=== PATIENT | female | born 1970 | race Caucasian/White ===

== ENCOUNTER → 2022-03-07 | Outpatient (CLI) | payer OTHER ==
[~2022-03-07] MED LIST: CHLO25 PO; DOXY100 PO; EMTRICITABINE-1 EAC1 PO; METR500 PO; ONDA4ODT MM; RALT400 PO; SULTRIDS PO
[2022-03-07 17:31] LABS: Source, Urine Voided
[2022-03-07 18:19] LABS: Appearance, Urine Clear (Clear); Bilirubin, Urine Neg (Neg); Blood, Urine Neg (Neg); Glucose Qualitative, Urine Neg (Neg); Ketones, Urine Neg (Neg); Leukocyte Esterase, Urine 2+ (Neg); Nitrite, Urine Neg (Neg); Protein, Urine Neg (Neg); Urobilinogen, Urine NORM (Normal)
[2022-03-07 18:29] LABS: Color, Urine Pale Yellow (P-Yellow)
[2022-03-07 18:31] LABS: Bacteria Mod /hpf; Red Blood Cells, Urine 0-2 /hpf (0-2); Squamous Epithelial Cells Rare /hpf (Few)
== END ==
LOC: LAB 13:36 → LAB SHORT 13:36
PROVIDERS: Registered Nurse
DX: R30.0 Dysuria (principal)
CPT/HCPCS: 81001; 87086

== ENCOUNTER 2022-04-30 16:52 | Emergency (ER) | payer OTHER ==
[~2022-04-30] VITALS: Ht 162.6 cm; Wt 56.7 kg
== END 2022-04-30 20:21 | disposition home or self-care (01) ==
LOC: ER 16:52 → EOR 16:53
DX: F10.129 Alcohol abuse with intoxication, unspecified (principal)
CPT/HCPCS: 99284

== ENCOUNTER 2022-05-08 12:57 | Emergency (ER) | payer OTHER ==
[~2022-05-08] VITALS: Ht 157.5 cm; Wt 54.4 kg
[2022-05-08 13:32] LABS: BASOPHILS ABSOLUTE AUTO 0.03 K/mm3 (0.00-0.23); BASOPHILS PERCENT AUTO 1 % (0-2); EOSINOPHILS ABSOLUTE AUTO 0.02 K/mm3 (0.00-0.68); EOSINOPHILS PERCENT AUTO 0 % (0-6); Hematocrit 34.5 % (33.0-51.0); Hemoglobin 11.7 g/dL (11.5-16.0); IMMATURE GRAN ABSOLUTE AUTO 0.02 K/mm3 (0.00-0.10); IMMATURE GRAN PERCENT AUTO 0 % (0-1); LYMPHOCYTES ABSOLUTE AUTO 2.35 K/mm3 (0.84-5.20); LYMPHOCYTES PERCENT AUTO 36 % (21-46); MONOCYTES ABSOLUTE AUTO 0.32 K/mm3 (0.16-1.47); MONOCYTES PERCENT AUTO 5 % (4-13); Mean Corpuscular HGB 30.4 pg (26.0-34.0); Mean Corpuscular HGB Conc 33.9 g/dL (31.5-36.5); Mean Corpuscular Volume 90 fL (80-100); Mean Platelet Volume 9.5 fL (9.1-12.4); NEUTROPHILS ABSOLUTE AUTO 3.76 K/mm3 (1.96-9.15); NEUTROPHILS PERCENT AUTO 58 % (41-73); Platelet Count 226 K/mm3 (150-400); RDW Coefficient Variation 13.6 % (11.7-14.2); Red Blood Cell Count 3.85 M/mm3 (3.80-5.20)
[2022-05-08 13:45] LABS: Albumin, Blood 3.4 g/dL (3.4-5.0); Albumin/Globulin Ratio 1.1 (0.8-1.8); Bilirubin, Total 0.3 mg/dL (0.1-1.0); Bun/Creatinine Ratio 14.6 (12.0-20.0); Calcium, Blood 8.3 mg/dL (8.5-10.1); Creatinine, Blood 0.69 mg/dL (0.40-1.00); Globulin, Blood 3.2 g/dL (2.2-4.0); Potassium, Blood 3.2 mmol/L (3.5-5.5); Total Protein, Blood 6.6 g/dL (6.4-8.2)
[2022-05-08 16:01] LABS: U Cannabinoids Screen DETECTED
[2022-05-08 16:02] LABS: U Amphetamine Screen Not Detected; U Barbituate Screen Not Detected; U Benzodiazapine Screen Not Detected; U Buprenorphine Screen Not Detected; U Cocaine Screen Not Detected; U Methadone Screen Not Detected; U Methamphetamine Screen Not Detected; U Opiates Screen Not Detected; U Oxycodone Screen Not Detected; U Phencyclidine Screen Not Detected; U Propoxyphene Screen Not Detected
== END 2022-05-08 16:22 | disposition home or self-care (01) ==
LOC: ER 12:57
PROVIDERS: Emergency Medicine; Physician Assistant
DX: F10.229 Alcohol dependence with intoxication, unspecified (principal); R07.9 Chest pain, unspecified; F17.200 Nicotine dependence, unspecified, uncomplicated
CPT/HCPCS: 71046; 80053; 83690; 83880; 84484; 85025; 93005; 93010; 99285-25; G0480

== ENCOUNTER 2022-05-11 11:01 | Emergency (ER) | payer OTHER ==
[~2022-05-11] VITALS: Ht 165.1 cm; Wt 61.2 kg
[2022-05-11 11:25] LABS: BASOPHILS ABSOLUTE AUTO 0.03 K/mm3 (0.00-0.23); BASOPHILS PERCENT AUTO 1 % (0-2); EOSINOPHILS ABSOLUTE AUTO 0.04 K/mm3 (0.00-0.68); EOSINOPHILS PERCENT AUTO 1 % (0-6); Hematocrit 34.8 % (33.0-51.0); Hemoglobin 11.5 g/dL (11.5-16.0); IMMATURE GRAN ABSOLUTE AUTO 0.02 K/mm3 (0.00-0.10); IMMATURE GRAN PERCENT AUTO 1 % (0-1); LYMPHOCYTES ABSOLUTE AUTO 1.16 K/mm3 (0.84-5.20); LYMPHOCYTES PERCENT AUTO 27 % (21-46); MONOCYTES ABSOLUTE AUTO 0.41 K/mm3 (0.16-1.47); MONOCYTES PERCENT AUTO 9 % (4-13); Mean Corpuscular HGB 30.6 pg (26.0-34.0); Mean Corpuscular Volume 93 fL (80-100); Mean Platelet Volume 9.1 fL (9.1-12.4); NEUTROPHILS ABSOLUTE AUTO 2.72 K/mm3 (1.96-9.15); NEUTROPHILS PERCENT AUTO 62 % (41-73); Platelet Count 216 K/mm3 (150-400); RDW Coefficient Variation 14.8 % (11.7-14.2); RDW Standard Deviation 49.5 fL (35.1-46.3); Red Blood Cell Count 3.76 M/mm3 (3.80-5.20); White Blood Cell Count 4.38 K/mm3 (4.00-11.30)
[2022-05-11] MEDS ORDERED: GABA100 PO (11:34)
[2022-05-11] MEDS ORDERED: Seroquel Xr50 MG PO (11:35)
[2022-05-11 11:38] LABS: Albumin, Blood 3.4 g/dL (3.4-5.0); Albumin/Globulin Ratio 1.1 (0.8-1.8); Bilirubin, Total 0.2 mg/dL (0.1-1.0); Bun/Creatinine Ratio 18.2 (12.0-20.0); Calcium, Blood 7.6 mg/dL (8.5-10.1); Creatinine, Blood 0.6 mg/dL (0.40-1.00); Globulin, Blood 3.2 g/dL (2.2-4.0); Potassium, Blood 3.7 mmol/L (3.5-5.5); Total Protein, Blood 6.6 g/dL (6.4-8.2)
[2022-05-11 12:28] LABS: Influenza A, PCR NEGATIVE (NEGATIVE); Influenza B, PCR NEGATIVE (NEGATIVE); Resp Syncytial Virus, PCR NEGATIVE (NEGATIVE); SARS-Cov-2 (COVID-19) PCR, MMC NEGATIVE (NEGATIVE)
[2022-05-11] MEDS ORDERED: ONDA4ODT MM (14:34)
== END 2022-05-11 15:05 | disposition home or self-care (01) ==
LOC: ER 11:01
PROVIDERS: Student in an Organized Health Care Education/Training Program
DX: R55 Syncope and collapse (principal); E86.0 Dehydration; F10.20 Alcohol dependence, uncomplicated; E83.51 Hypocalcemia; F17.200 Nicotine dependence, unspecified, uncomplicated; Z20.822 Contact with and (suspected) exposure to COVID-19
CPT/HCPCS: 0241U; 80053; 83735; 85025; 93005; 93010; A9270; G0480; J0610; J2765; J7030

== ENCOUNTER 2022-09-06 16:11 | Emergency (ER) | payer OTHER ==
[~2022-09-06] VITALS: Ht 162.6 cm; Wt 68.0 kg
[~2022-09-06 16:11] MED LIST changes: +GABA100 PO; +Seroquel Xr50 MG PO
[2022-09-06 16:57] VITALS: BP 101/84
== END 2022-09-06 19:00 | disposition home or self-care (01) ==
LOC: ER 16:11
DX: F41.9 Anxiety disorder, unspecified (principal); R45.1 Restlessness and agitation; Z79.899 Other long term (current) drug therapy; F17.200 Nicotine dependence, unspecified, uncomplicated
CPT/HCPCS: 99282

== ENCOUNTER 2022-12-13 18:31 | Observation (INO) | payer OTHER ==
[~2022-12-13 18:31] MED LIST changes: +ELIQUIS5 M2 PO
[2022-12-13 20:51] LABS: BASOPHILS ABSOLUTE AUTO 0.09 K/mm3 (0.00-0.23); BASOPHILS PERCENT AUTO 1 % (0-2); EOSINOPHILS ABSOLUTE AUTO 0.14 K/mm3 (0.00-0.68); EOSINOPHILS PERCENT AUTO 2 % (0-6); Hematocrit 37.3 % (33.0-51.0); Hemoglobin 12.8 g/dL (11.5-16.0); IMMATURE GRAN ABSOLUTE AUTO 0.02 K/mm3 (0.00-0.10); IMMATURE GRAN PERCENT AUTO 0 % (0-1); LYMPHOCYTES PERCENT AUTO 56 % (21-46); MONOCYTES ABSOLUTE AUTO 0.67 K/mm3 (0.16-1.47); MONOCYTES PERCENT AUTO 11 % (4-13); Mean Corpuscular HGB 29.3 pg (26.0-34.0); Mean Corpuscular HGB Conc 34.3 g/dL (31.5-36.5); Mean Corpuscular Volume 85 fL (80-100); Mean Platelet Volume 8.3 fL (9.1-12.4); NEUTROPHILS ABSOLUTE AUTO 1.83 K/mm3 (1.96-9.15); NEUTROPHILS PERCENT AUTO 29 % (41-73); Platelet Count 320 K/mm3 (150-400); RDW Coefficient Variation 13.7 % (11.7-14.2); RDW Standard Deviation 42.4 fL (35.1-46.3); Red Blood Cell Count 4.37 M/mm3 (3.80-5.20); White Blood Cell Count 6.25 K/mm3 (4.00-11.30)
[2022-12-13 21:19] LABS: Alanine Aminotransfer (ALT/SGP 23 U/L (12-78); Albumin, Blood 3.8 g/dL (3.4-5.0); Albumin/Globulin Ratio 1.1 (0.8-1.8); Alk Phos 94 U/L (50-136); Anion Gap 10 mmol/L (6-16); Aspartate Aminotrans (AST/SGOT 22 U/L (12-37); Bilirubin, Total 0.1 mg/dL (0.1-1.0); Blood Urea Nitrogen 6 mg/dL (8-24); Bun/Creatinine Ratio 8.7 (12.0-20.0); CO2, Blood 25 mmol/L (21-32); Calcium, Blood 8.5 mg/dL (8.5-10.1); Chloride, Blood 111 mmol/L (98-108); Creatinine, Blood 0.69 mg/dL (0.40-1.00); Globulin, Blood 3.6 g/dL (2.2-4.0); Glomerular Filtration Rate 104 (60-); Glucose, Blood 100 mg/dL (70-99); Potassium, Blood 3.6 mmol/L (3.5-5.5); Sodium, Blood 146 mmol/L (136-145); Total Protein, Blood 7.4 g/dL (6.4-8.2)
[2022-12-13 21:20] LABS: Acetaminophen, Random <2.0 ug/mL (10.0-30.0)
[2022-12-13 21:30] LABS: Ethanol (Alcohol), Blood, Med 360 mg/dL
[2022-12-13 21:36] LABS: Source, Urine Voided
[2022-12-13 21:40] LABS: Appearance, Urine Clear (Clear); Bilirubin, Urine Neg (Neg); Blood, Urine Neg (Neg); Glucose Qualitative, Urine Neg (Neg); Ketones, Urine Neg (Neg); Leukocyte Esterase, Urine Neg (Neg); Nitrite, Urine Neg (Neg); Protein, Urine Neg (Neg); Urobilinogen, Urine NORM (Normal)
[2022-12-13 21:44] LABS: Color, Urine Pale Yellow (P-Yellow)
[2022-12-13 22:47] LABS: U Amphetamine Screen DETECTED; U Barbituate Screen Not Detected; U Benzodiazapine Screen DETECTED; U Buprenorphine Screen Not Detected; U Cannabinoids Screen Not Detected; U Cocaine Screen Not Detected; U Methadone Screen Not Detected; U Methamphetamine Screen DETECTED; U Opiates Screen Not Detected; U Oxycodone Screen Not Detected; U Phencyclidine Screen Not Detected; U Propoxyphene Screen Not Detected
[2022-12-14 10:19] VITALS: BP 132/76
[2022-12-14] MEDS ORDERED: HYDPAM25 PO (12:11)
[2022-12-14] MEDS ORDERED: GABA400 PO (12:11)
[2022-12-14] MEDS ORDERED: ELIQUIS5 M3 (19:54)
[2022-12-14] MEDS ORDERED: NICORETTE4 M1 BC (19:54)
[2022-12-14] MEDS ORDERED: LAMOTRIGINE25 M4 PO (19:55)
== END 2022-12-15 22:34 | disposition home or self-care (01) ==
LOC: ER 18:31 → EOR 18:32
PROVIDERS: ADMIT Emergency Medicine
DX: F33.9 Major depressive disorder, recurrent, unspecified (principal); F15.10 Other stimulant abuse, uncomplicated; F10.139 Alcohol abuse with withdrawal, unspecified; F17.210 Nicotine dependence, cigarettes, uncomplicated; Z79.899 Other long term (current) drug therapy
CPT/HCPCS: 80053; 81003; 81025; 85025; 86592; 93005; 93010; 96372; 99285-25; A9270; G0378; G0480; J0696; J2560; J3411; Q3014

== ENCOUNTER 2023-03-28 23:37 | Observation (INO) | payer OTHER ==
[~2023-03-28] VITALS: Ht 167.6 cm; Wt 72.8 kg
[~2023-03-28 23:37] MED LIST changes: +CITALOPRAM HBR30 M1 PO; +ELIQUIS5 M3; +GABA300 PO; +GABA400 PO; +HYDPAM25 PO; +LAMO100 PO; +LAMOTRIGINE25 M4 PO; +NICO21TP TOP; +NICORETTE4 M1 BC; +QUET300 PO
[2023-03-29] VITALS (19 sets, daily range): BP systolic 95–133; BP diastolic 73–93
[2023-03-29 00:47] LABS: Base Excess Venous -1.9 mmol/L; Bicarbonate Venous 22.7 mmol/L (24.0-30.0); PCO2 Venous 42.4 mmHg (38-42); pH Blood Venous 7.35 (7.34-7.37)
[2023-03-29 00:47] LABS: BASOPHILS ABSOLUTE AUTO 0.15 K/mm3 (0.00-0.23); BASOPHILS PERCENT AUTO 2 % (0-2); EOSINOPHILS ABSOLUTE AUTO 0.38 K/mm3 (0.00-0.68); EOSINOPHILS PERCENT AUTO 4 % (0-6); Hematocrit 43.2 % (33.0-51.0); Hemoglobin 14.3 g/dL (11.5-16.0); IMMATURE GRAN ABSOLUTE AUTO 0.02 K/mm3 (0.00-0.10); IMMATURE GRAN PERCENT AUTO 0 % (0-1); LYMPHOCYTES ABSOLUTE AUTO 3.71 K/mm3 (0.84-5.20); LYMPHOCYTES PERCENT AUTO 40 % (21-46); MONOCYTES ABSOLUTE AUTO 1.13 K/mm3 (0.16-1.47); MONOCYTES PERCENT AUTO 12 % (4-13); Mean Corpuscular HGB 31.8 pg (26.0-34.0); Mean Corpuscular HGB Conc 33.1 g/dL (31.5-36.5); Mean Corpuscular Volume 96 fL (80-100); Mean Platelet Volume 9.6 fL (9.1-12.4); NEUTROPHILS ABSOLUTE AUTO 3.94 K/mm3 (1.96-9.15); NEUTROPHILS PERCENT AUTO 42 % (41-73); Platelet Count 314 K/mm3 (150-400); RDW Coefficient Variation 14.7 % (11.7-14.2); RDW Standard Deviation 52.4 fL (35.1-46.3); Red Blood Cell Count 4.49 M/mm3 (3.80-5.20); White Blood Cell Count 9.33 K/mm3 (4.00-11.30)
[2023-03-29 01:15] LABS: Ethanol (Alcohol), Blood, Med 146 mg/dL; Magnesium, Blood 2.2 mg/dL (1.6-2.4); Salicylate <1.7 mg/dL (2.8-20.0)
[2023-03-29 01:16] LABS: Alanine Aminotransfer (ALT/SGP 234 U/L (12-78); Alk Phos 127 U/L (50-136); Anion Gap 9 mmol/L (6-16); Aspartate Aminotrans (AST/SGOT 213 U/L (12-37); Bilirubin, Total 0.5 mg/dL (0.1-1.0); Blood Urea Nitrogen 6 mg/dL (8-24); Bun/Creatinine Ratio 7.7 (12.0-20.0); CO2, Blood 26 mmol/L (21-32); Chloride, Blood 102 mmol/L (98-108); Creatinine, Blood 0.78 mg/dL (0.40-1.00); Glomerular Filtration Rate 91 (60-); Glucose, Blood 143 mg/dL (70-99); Phosphorus, Blood 4.5 mg/dL (2.5-4.9); Potassium, Blood 3.3 mmol/L (3.5-5.5); Sodium, Blood 137 mmol/L (136-145)
[2023-03-29 01:17] LABS: Acetaminophen, Random <2.0 ug/mL (10.0-30.0)
[2023-03-29 01:23] LABS: Influenza A, PCR NEGATIVE (NEGATIVE); Influenza B, PCR NEGATIVE (NEGATIVE); Resp Syncytial Virus, PCR NEGATIVE (NEGATIVE); SARS-Cov-2 (COVID-19) PCR, MMC NEGATIVE (NEGATIVE)
[2023-03-29 01:41] LABS: International Normalized Ratio 0.9; Prothrombin Time Results 9.5 Sec (9.7-11.5)
--- NOTE | 2023-03-29 06:30 | NUR ---
PT ADMITTED TO ROOM ICU 15 FROM ED. ARRIVING AT 0435. REPORT RECEIVED. PT AWAKENS AND IS EASILY TRANSFERS HERSELF FROM GURNEY TO BED. ABLE TO ANSWER MOST QUESTIONS. DOES HAVE SOME MEMORY DEFICITS. CHANGED PT TO PAPER SCRUBS. PT MAKES VERBAL CONTRACT TO NOT ATTEMPT TO HARM HERSELF WHILE HERE. 1:1 SITTER AT DOOR. WILL CONTINUE TO MONITOR PT, AND WILL REPORT OFF TO ONCOMING RN.
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
--- NOTE | 2023-03-29 16:46 | NUR ---
SUMMARY PT DROWSY BUT AROUSES FROM SLEEP EASILY TO VOICE. ABLE TO HOLD APPROPRIATE CONVERSATION. PLEASANT AND COOPERATIVE. PT STATES SHE DRINKS WHATEVER ALCOHOL SHE CAN GET ON A DAILY BASIS. SPOKE WITH DR. JONES ABOUT CIWA ORDERS, NEW ORDERS RECEIVED. DR. GARNER IN TO SEE PT THIS AFTERNOON. RECOMMENDING INPT PSYCH AND KEEP 1:1 SITTER. NEW MEDS ORDERED WELL. NO SIGN OF DISTRESS. PT WILL BE MOVING TO PCU 8.
--- NOTE | 2023-03-29 18:33 | NUR ---
TRANSFER TO PCU AND SHIFT SUMMARY: PATIENT ALERT AND ORIENTED X4. VERY PLEASENT AND COOPERATIVE WITH CARES. DENIES NUMBNESS/TINGLING. UP WITH SBA TO HELP MANAGE IV CORDS. ON ROOM AIR, LUNGS SOUNDING CLEAR. TELE SHOWING SR WITH HR 70-90'S. SBP 110'S. DENIES CHEST PAIN/PRESSURE/PALPITATIONS. PPP. DENIES ABDOMINAL PAIN/NAUSEA. BOWEL TONES PRESENT. UP TO BATHROOM/BSC TO VOID. HIGH SI PRECUATIONS. 1:1 SITTER IN ROOM. ROOM MITIGATED PRIOR TO PATIENT ARRIVAL. CIWA SCORING 5 UPON TRANSFER. EATING DINNER AT THIS TIME. COMPLAINS OF LEFT HAND PAIN. NO SWELLING OR REDNESS NOTED. SHORT CALL LIGHT IN REACH. DENIES NEEDS AT THIS TIME.
[2023-03-30 00:14] VITALS: BP 106/78
[2023-03-30 04:28] VITALS: BP 108/69
[2023-03-30 04:31] LABS: Source, Urine Clean Catch
[2023-03-30 04:35] LABS: Bilirubin, Urine Neg (Neg); Blood, Urine Neg (Neg); Glucose Qualitative, Urine Neg (Neg); Ketones, Urine Neg (Neg); Leukocyte Esterase, Urine Neg (Neg); Nitrite, Urine Neg (Neg); Protein, Urine Neg (Neg); Urobilinogen, Urine NORM (Normal)
[2023-03-30 04:49] LABS: Color, Urine Pale Yellow (P-Yellow)
[2023-03-30 04:50] LABS: Appearance, Urine Clear (Clear)
--- NOTE | 2023-03-30 04:53 | NUR ---
ASSUMED CARE OF PT AT 1900. PT HAS HAD NO COMPLAINTS T/O THE NIGHT. DENIES SUICIDAL IDEATION T/O THE SHIFT, DENIES OVERDOSING SUICIDE ATTEMPT. PT APPEARS TO SLEEP THROUGH MOST OF THE SHIFT, RESPIRATIONS EVEN AND UNLABORED. 1:1 SITTER IN LINE OF SIGHT OF PT T/O THE SHIFT. IV TO L HAND PULLED BY PT, APPEARS TO BE AN ACCIDENT. GAUZE APPLIED. 2ND IV TO LAC INTACT. NO ACUTE CHANGES T/O THE SHIFT. 1:[address] FOR PT SAFETY. WILL CONTINUE TO MONITOR AND GIVE REPORT TO NOC SHIFT RN.
[2023-03-30 04:58] LABS: U Amphetamine Screen DETECTED; U Barbituate Screen Not Detected; U Benzodiazapine Screen DETECTED; U Buprenorphine Screen Not Detected; U Cannabinoids Screen Not Detected; U Cocaine Screen Not Detected; U Methadone Screen Not Detected; U Methamphetamine Screen DETECTED; U Opiates Screen Not Detected; U Oxycodone Screen Not Detected; U Phencyclidine Screen Not Detected; U Propoxyphene Screen Not Detected
[2023-03-30 08:43] VITALS: BP 113/74
--- NOTE | 2023-03-30 09:37 | NUR ---
PATIENT WAS VERBALLY AGGRESSIVE WITH LAB STAFF THIS AM AND REFUSED LAB DRAW, PT WAS PLEASANT WHEN THIS RN ARRIVED TO THE ROOM, BUT AIMEE STATES THAT PT WAS VERBALLY AGGRESSIVE WITH LAB STAFF
--- NOTE | 2023-03-30 12:15 | NUR ---
PT COMPLAINING OF LT HAND PAIN, SLIGHT ERYTHEMA NOTED TO LT HAND, THERE IS A PUNCTURE SITE TO THIS HAND, THE HAND IS WARM TO THE TOUCH. TEMP IS 99.9. THE PUNCTURE SITE WAS CLEANED WITH WOUNDTGERITY AND REDRESSED. DR JONES IS CALLED AND UPDATED, NO FURHTER ORDERS AT THIS TIME
[2023-03-30 12:22] VITALS: BP 118/76
--- NOTE | 2023-03-30 12:23 | NUR ---
PER CHART REVIEW THERE WAS NOT AN IV PLACED TO LT HAND THAT ACCOUNT FOR PUNCTURE HOLE TO THAT HAND.
[2023-03-30 15:33] VITALS: BP 111/79
--- NOTE | 2023-03-30 17:35 | NUR ---
PT IS ALERT AND ORIENTED TO SELF AND SITUATION. PT DOES INTERMITTENTLY BECOME AGITATED WITH CERTAIN STAFF MEMBERS. HER HAND HAS LESS REDNESS TO IT AFTER BEING CLEANED AND REDRESSED, PT REPORTS THAT HAND NO LONGER HURTS. PT WAS UP TO SHOWER THIS AFTERNOON SHE BECAME VERY AGITATED WHILE IN THE SHOWER WAS SOBBING AND SITTING ON THE FLOOR OF THE SHOWER. SHE HAS BEEN APPROPRIATE WITH CARE FOR THIS RN, BUT SHE HAS REFUSED CARE WITH LAB AND POLE LIFT OPERATOR TODAY. DR JONES WAS HERE TO ASSESS HER HAND. I CALLED ALL FACILITIES IN THE STATE TODAY, NONE HAD BED AVAILABILITY, [facility] HAS FAXED PACKETS FOR THE PT TO NUMEROUS FACILITIES. SHE OTHERWISE HAS BEEN RESTING WELL IN BED WITH 1:1 SITTER. NADN. FLYNN
[2023-03-30 22:10] VITALS: BP 115/77
[2023-03-31 00:11] VITALS: BP 115/77
--- NOTE | 2023-03-31 00:23 | NUR ---
ASSUMED CARE OF PT AT 1900 THIS EVENING. PT IS CALM AND COOPERATIVE WITH STAFF, 1:[address] 1939: THIS RN CONTACTED BY [facility], THEY HAVE A BED AVAILABLE FOR PT. REPORT GIVEN TO RN. AWAITING DOC TO DOC AND ROOM ASSIGNMENT. STAFF INFORMED PT THAT SHE HAS BEEN ACCEPTED TO [facility]. PT STATES "I DON'T WAN TO GO, I WANT TO GO TO REHAB!" DR BRAGA NOTIFIED AND HE SPOKE WITH DR GARNER REGUARDING HIS RECOMENDATION FOR PT TO GO TO [facility]. DR GARNER CONFIRMED PT IS TO BE TRANSFERED, PER DR BRAGA. PROCESS STARTED FOR 2 MD HOLD PAPERWORK PER DR BRAGA AND DR BANG.
[2023-03-31 04:11] VITALS: BP 119/65
[2023-03-31 05:14] LABS: Albumin, Blood 3.1 g/dL (3.4-5.0); Albumin/Globulin Ratio 0.9 (0.8-1.8); Bilirubin, Total 0.2 mg/dL (0.1-1.0); Bun/Creatinine Ratio 9.4 (12.0-20.0); Calcium, Blood 8.5 mg/dL (8.5-10.1); Creatinine, Blood 0.74 mg/dL (0.40-1.00); Free Thyroxine 0.73 ng/dL (0.70-1.60); Globulin, Blood 3.4 g/dL (2.2-4.0); Potassium, Blood 3.9 mmol/L (3.5-5.5); Thyroid Stimulating Hormone 0.482 uIU/mL (0.360-4.800); Total Protein, Blood 6.5 g/dL (6.4-8.2)
--- NOTE | 2023-03-31 06:33 | NUR ---
PT IS NOW ON A 2 MD HOLD. TRANSPORT TO [facility] SCHEDULED FOR 1545 TODAY. PT IS AWARE OF HER PENDING TRANSFER AND 2 MD HOLD. NO EXPRESSION OF SUICIDAL IDEATION OVERNIGHT. PT SLEPT MOST OF THE NIGHT AND WAS COOPERATIVE WITH STAFF.1:[address] FOR SAFETY. VSS. SEE DOCUMENTED ASSESSMENT. NO ACUTE NEEDS IDENTIFIED AT THIS TIME. WILL CONITNUE TO MONITOR AND GIVE REPORT TO AM RN.
[2023-03-31 09:17] VITALS: BP 119/83
--- NOTE | 2023-03-31 09:31 | NUR ---
PT IS COOPERATIVE BUT AGITATED THIS MORNING. THIS RN TO ROOM FOR MORNING MEDCIATION PASS SHE IMMEDAIATELY BEGINS ASKING ABOUT TRANSPORT TIME, SHE IS REMINDED AGAIN THAT TRANSPORT IS DUE TO ARRIVE AROUND 1600 TODAY, SHE BEGINS WITH PRESSURED SPEECH AT AN ELEVATED TONE "I WAS TOLD IT WOULD BE LAST NIGHT, THEN I WAS TOLD 9 THIS MORNING AND NOW YOU'RE SAYING TONIGHT, I JUST WANT YOU TO KNOW YOU'RE FUCKED UP". PT IS REMINDED THAT THIS RN AND STAFF ARE NOT IN CONTROL OF [facility] AND THEIR TIMES THEY DO THEIR OWN SCHEDULING. SHE BEGINS TO CRITIZE THIS RN THIS TIME FOR TRANSPORT IS TOO LONG FOR HER TO WAIT. SHE IS AGAIN REMINDED THAT THIS RN NOR ANY MEMBER OF STAFF CONTROL [facility] AND THEIR SCHEDULING SHE AGAIN IS CRITICIZING THIS RN. PT IS POLITELY ENCOURAGED TO SHARE HER CONCERN AND REVIEW OF HER EXPERIENCE WITH WAIT TIME WITH [facility], SHE STS "FINE I AM JUST GOING TO BRING IT UP OR TALK ABOUT IT AGAIN". PT ACCEPTS MEDICATIONS, REFUSED HEPARIN, ALLOWED VITALS TO BE TAKEN
[2023-03-31 16:29] VITALS: BP 1/83
--- NOTE | 2023-03-31 17:27 | NUR ---
PT OTD WITH [facility], LENI AT [facility] IS UPDATED THAT PT WILL ARRIVE IN AROUND 3 HOURS. IV REMOVED PT CALM AND COOPERATIVE
== END 2023-03-31 17:26 ==
LOC: ER 23:37 → ICUE 23:38 → PCU 23:38 → ICUE 23:38 → PCU 03-29 17:56
PROVIDERS: Emergency Medicine; Internal Medicine; ADMIT Internal Medicine
DX: T43.591A Poisoning by other antipsychotics and neuroleptics, accidental (unintentional), initial encounter (principal); F15.10 Other stimulant abuse, uncomplicated; J96.01 Acute respiratory failure with hypoxia; E87.6 Hypokalemia; G92.8 Other toxic encephalopathy; F10.129 Alcohol abuse with intoxication, unspecified; E87.20 Acidosis, unspecified; R94.6 Abnormal results of thyroid function studies; F31.9 Bipolar disorder, unspecified; F17.210 Nicotine dependence, cigarettes, uncomplicated; Z79.899 Other long term (current) drug therapy; Z20.822 Contact with and (suspected) exposure to COVID-19
CPT/HCPCS: 0241U; 36415; 71045; 80053; 81003; 82803; 83605; 83735; 84100; 84439; 84443; 84484; 84703; 85025; 85610; 85730; 93005; 93010; 96365; 96366; 96372; 96375; 96376; 99285-25; A9270; G0378; G0480; J1644; J2060; J2310; J3475; J7030; J7120

== ENCOUNTER 2023-05-03 15:28 | Emergency (ER) | payer OTHER ==
[~2023-05-03] VITALS: Ht 157.5 cm; Wt 54.4 kg
[2023-05-03 15:34] VITALS: BP 118/68
[2023-05-10] MEDS ORDERED: FERSU300 PO (00:53)
== END 2023-05-04 15:22 | disposition home or self-care (01) ==
LOC: ER 15:28
DX: T69.022A Immersion foot, left foot, initial encounter (principal); T69.021A Immersion foot, right foot, initial encounter; F17.200 Nicotine dependence, unspecified, uncomplicated
CPT/HCPCS: 86592; 99283; A9270

== ENCOUNTER 2023-05-09 17:38 | Emergency (ER) | payer OTHER ==
[~2023-05-09] VITALS: Ht 157.5 cm; Wt 59.0 kg
[2023-05-09 18:31] LABS: BASOPHILS ABSOLUTE AUTO 0.03 K/mm3 (0.00-0.23); BASOPHILS PERCENT AUTO 1 % (0-2); EOSINOPHILS ABSOLUTE AUTO 0.07 K/mm3 (0.00-0.68); EOSINOPHILS PERCENT AUTO 1 % (0-6); Hematocrit 33.9 % (33.0-51.0); Hemoglobin 11.2 g/dL (11.5-16.0); IMMATURE GRAN ABSOLUTE AUTO 0.04 K/mm3 (0.00-0.10); IMMATURE GRAN PERCENT AUTO 1 % (0-1); LYMPHOCYTES ABSOLUTE AUTO 1.61 K/mm3 (0.84-5.20); LYMPHOCYTES PERCENT AUTO 24 % (21-46); MONOCYTES ABSOLUTE AUTO 0.46 K/mm3 (0.16-1.47); MONOCYTES PERCENT AUTO 7 % (4-13); Mean Corpuscular Volume 94 fL (80-100); Mean Platelet Volume 9.1 fL (9.1-12.4); NEUTROPHILS ABSOLUTE AUTO 4.39 K/mm3 (1.96-9.15); NEUTROPHILS PERCENT AUTO 66 % (41-73); Platelet Count 324 K/mm3 (150-400); RDW Coefficient Variation 14.1 % (11.7-14.2); RDW Standard Deviation 48.5 fL (35.1-46.3); Red Blood Cell Count 3.61 M/mm3 (3.80-5.20)
[2023-05-09 19:11] LABS: Albumin/Globulin Ratio 0.9 (0.8-1.8); Bilirubin, Total 0.1 mg/dL (0.1-1.0); Bun/Creatinine Ratio 12.2 (12.0-20.0); Calcium, Blood 8.4 mg/dL (8.5-10.1); Creatinine, Blood 0.74 mg/dL (0.40-1.00); Globulin, Blood 3.3 g/dL (2.2-4.0); Potassium, Blood 3.5 mmol/L (3.5-5.5); Total Protein, Blood 6.3 g/dL (6.4-8.2)
[2023-05-09 19:46] LABS: Magnesium, Blood 1.7 mg/dL (1.6-2.4)
[2023-05-09 20:11] LABS: Influenza A, PCR NEGATIVE (NEGATIVE); Influenza B, PCR NEGATIVE (NEGATIVE); Resp Syncytial Virus, PCR NEGATIVE (NEGATIVE); SARS-Cov-2 (COVID-19) PCR, MMC NEGATIVE (NEGATIVE)
[2023-05-09 21:31] LABS: Percent Saturation 10.6 % (15.0-50.0)
[2023-05-09 21:45] VITALS: BP 102/73
[2023-05-10] MEDS ORDERED: FERSU300 PO (00:53)
== END 2023-05-09 22:10 | disposition home or self-care (01) ==
LOC: ER 17:38
PROVIDERS: Emergency Medicine; Student in an Organized Health Care Education/Training Program
DX: I47.10 Supraventricular tachycardia, unspecified (principal); E86.0 Dehydration; J06.9 Acute upper respiratory infection, unspecified; D64.9 Anemia, unspecified; F10.129 Alcohol abuse with intoxication, unspecified; Z20.822 Contact with and (suspected) exposure to COVID-19; F17.200 Nicotine dependence, unspecified, uncomplicated; F31.9 Bipolar disorder, unspecified; Z79.899 Other long term (current) drug therapy; W18.30XA Fall on same level, unspecified, initial encounter
CPT/HCPCS: 0241U; 80053; 82607; 82728; 82746; 83540; 83550; 83735; 84484; 85025; 93005; 93010; 96360; 99284-25; J7030

== ENCOUNTER 2023-06-01 17:11 | Observation (INO) | payer OTHER ==
[~2023-06-01] VITALS: Ht 167.6 cm; Wt 63.5 kg
[~2023-06-01 17:11] MED LIST changes: +FERSU300 PO
[2023-06-01 19:34] LABS: BASOPHILS ABSOLUTE AUTO 0.06 K/mm3 (0.00-0.23); BASOPHILS PERCENT AUTO 1 % (0-2); EOSINOPHILS ABSOLUTE AUTO 0.09 K/mm3 (0.00-0.68); EOSINOPHILS PERCENT AUTO 1 % (0-6); Hematocrit 43.2 % (33.0-51.0); Hemoglobin 14.4 g/dL (11.5-16.0); IMMATURE GRAN ABSOLUTE AUTO 0.04 K/mm3 (0.00-0.10); IMMATURE GRAN PERCENT AUTO 1 % (0-1); LYMPHOCYTES ABSOLUTE AUTO 2.41 K/mm3 (0.84-5.20); LYMPHOCYTES PERCENT AUTO 35 % (21-46); MONOCYTES ABSOLUTE AUTO 0.49 K/mm3 (0.16-1.47); MONOCYTES PERCENT AUTO 7 % (4-13); Mean Corpuscular HGB 31.3 pg (26.0-34.0); Mean Corpuscular HGB Conc 33.3 g/dL (31.5-36.5); Mean Corpuscular Volume 94 fL (80-100); NEUTROPHILS ABSOLUTE AUTO 3.86 K/mm3 (1.96-9.15); NEUTROPHILS PERCENT AUTO 55 % (41-73); RDW Coefficient Variation 14.4 % (11.7-14.2); RDW Standard Deviation 50.1 fL (35.1-46.3); White Blood Cell Count 6.95 K/mm3 (4.00-11.30)
[2023-06-01 19:42] LABS: Mean Platelet Volume 9.2 fL (9.1-12.4)
[2023-06-01 20:02] LABS: Platelet Count 313 K/mm3 (150-400)
[2023-06-01 21:38] LABS: Ethanol (Alcohol), Blood, Med 267 mg/dL; Salicylate <1.7 mg/dL (2.8-20.0)
[2023-06-01 21:41] LABS: Acetaminophen, Random <2.0 ug/mL (10.0-30.0); Alanine Aminotransfer (ALT/SGP 56 U/L (12-78); Albumin, Blood 3.5 g/dL (3.4-5.0); Albumin/Globulin Ratio 0.9 (0.8-1.8); Alk Phos 103 U/L (50-136); Anion Gap 5 mmol/L (6-16); Aspartate Aminotrans (AST/SGOT 47 U/L (12-37); Bilirubin, Total 0.2 mg/dL (0.1-1.0); Blood Urea Nitrogen 10 mg/dL (8-24); Bun/Creatinine Ratio 18.8 (12.0-20.0); CO2, Blood 28 mmol/L (21-32); Calcium, Blood 8.7 mg/dL (8.5-10.1); Chloride, Blood 109 mmol/L (98-108); Creatinine, Blood 0.53 mg/dL (0.40-1.00); Globulin, Blood 3.8 g/dL (2.2-4.0); Glomerular Filtration Rate 111 (60-); Glucose, Blood 93 mg/dL (70-99); Potassium, Blood 4.5 mmol/L (3.5-5.5); Sodium, Blood 142 mmol/L (136-145); Total Protein, Blood 7.3 g/dL (6.4-8.2)
[2023-06-02 02:59] LABS: Influenza A, PCR NEGATIVE (NEGATIVE); Influenza B, PCR NEGATIVE (NEGATIVE); Resp Syncytial Virus, PCR NEGATIVE (NEGATIVE); SARS-Cov-2 (COVID-19) PCR, MMC NEGATIVE (NEGATIVE)
[2023-06-02 03:11] LABS: Source, Urine Clean Catch
[2023-06-02 03:21] LABS: Bilirubin, Urine Neg (Neg); Blood, Urine 1+ (Neg); Glucose Qualitative, Urine Neg (Neg); Ketones, Urine 1+ (Neg); Leukocyte Esterase, Urine 1+ (Neg); Nitrite, Urine Pos (Neg); Protein, Urine 2+ (Neg); Specific Gravity, Urine 1.025 (1.003-1.022); Urobilinogen, Urine NORM (Normal)
[2023-06-02 03:32] LABS: Appearance, Urine Hazy (Clear); Color, Urine Yellow (P-Yellow)
[2023-06-02 03:34] LABS: Bacteria Many /hpf; Red Blood Cells, Urine 0-2 /hpf (0-2); Squamous Epithelial Cells Few /hpf (Few); White Blood Cells, Urine TNTC /hpf (0-5)
[2023-06-02 03:36] LABS: U Amphetamine Screen Not Detected; U Barbituate Screen Not Detected; U Benzodiazapine Screen Not Detected; U Buprenorphine Screen Not Detected; U Cannabinoids Screen DETECTED; U Cocaine Screen Not Detected; U Methadone Screen Not Detected; U Methamphetamine Screen Not Detected; U Opiates Screen Not Detected; U Oxycodone Screen Not Detected; U Phencyclidine Screen Not Detected
[2023-06-02 20:37] VITALS: BP 129/86
== END 2023-06-03 09:57 | disposition home or self-care (01) ==
LOC: ER 17:11 → EOR 17:12
PROVIDERS: ADMIT Emergency Medicine
DX: F31.81 Bipolar II disorder (principal); F10.10 Alcohol abuse, uncomplicated; F17.210 Nicotine dependence, cigarettes, uncomplicated; F15.10 Other stimulant abuse, uncomplicated; Z79.899 Other long term (current) drug therapy; Z20.822 Contact with and (suspected) exposure to COVID-19
CPT/HCPCS: 0241U; 80053; 81001; 81025; 83880; 84484; 85025; 86592; 87077; 87086; 87186; 93005; 93010; 96360; 96361; 96372-59; 99285-25; A9270; G0378; G0480; J2250; J7030

== ENCOUNTER 2024-02-06 16:06 | Emergency (ER) | payer OTHER ==
[~2024-02-06] VITALS: Ht 157.5 cm; Wt 54.4 kg
[2024-02-06 17:27] VITALS: BP 92/63
[2024-02-06] MEDS ORDERED: Acetaminophen 500 MG Tab PO ONE (19:35)
== END 2024-02-06 20:44 | disposition home or self-care (01) ==
LOC: ER 16:06
DX: J06.9 Acute upper respiratory infection, unspecified (principal); F17.200 Nicotine dependence, unspecified, uncomplicated; Z79.899 Other long term (current) drug therapy
CPT/HCPCS: 99283; A9270

== ENCOUNTER 2024-02-07 20:30 | Inpatient (IN) | payer OTHER ==
[~2024-02-07] VITALS: Ht 165.1 cm; Wt 54.3 kg
[2024-02-07] MEDS ORDERED: Lactated Ringer's 1,000 ML IV ONE (20:50)
[2024-02-07 21:17] LABS: BASOPHILS ABSOLUTE AUTO 0.18 K/mm3 (0.00-0.23); BASOPHILS PERCENT AUTO 1 % (0-2); EOSINOPHILS ABSOLUTE AUTO 0.04 K/mm3 (0.00-0.68); EOSINOPHILS PERCENT AUTO 0 % (0-6); Hemoglobin 11.9 g/dL (11.5-16.0); IMMATURE GRAN ABSOLUTE AUTO 0.48 K/mm3 (0.00-0.10); IMMATURE GRAN PERCENT AUTO 2 % (0-1); LYMPHOCYTES PERCENT AUTO 3 % (21-46); MONOCYTES PERCENT AUTO 2 % (4-13); Mean Corpuscular HGB 31.5 pg (26.0-34.0); Mean Corpuscular HGB Conc 36.1 g/dL (31.5-36.5); Mean Corpuscular Volume 87 fL (80-100); Mean Platelet Volume 10.5 fL (9.1-12.4); NEUTROPHILS ABSOLUTE AUTO 23.01 K/mm3 (1.96-9.15); NEUTROPHILS PERCENT AUTO 93 % (41-73); Platelet Count 312 K/mm3 (150-400); RDW Standard Deviation 44.5 fL (35.1-46.3); Red Blood Cell Count 3.78 M/mm3 (3.80-5.20); White Blood Cell Count 24.81 K/mm3 (4.00-11.30)
[2024-02-07] MEDS ORDERED: CefTRIAXone Sodium 2,000 MG in NS 100 ML IV ONE (21:30)
[2024-02-07 21:42] LABS: Free Thyroxine 0.95 ng/dL (0.70-1.60); Thyroid Stimulating Hormone 0.493 uIU/mL (0.360-4.800)
[2024-02-07 21:44] LABS: Albumin, Blood 1.7 g/dL (3.4-5.0); Albumin/Globulin Ratio 0.3 (0.8-1.8); Bilirubin, Total 1.1 mg/dL (0.1-1.0); Bun/Creatinine Ratio 33.5 (12.0-20.0); Calcium, Blood 7.7 mg/dL (8.5-10.1); Creatinine, Blood 0.75 mg/dL (0.40-1.00); Globulin, Blood 5.3 g/dL (2.2-4.0); Potassium, Blood 5.1 mmol/L (3.5-5.5)
[2024-02-07 22:39] LABS: Influenza A, PCR NEGATIVE (NEGATIVE); Influenza B, PCR NEGATIVE (NEGATIVE); Resp Syncytial Virus, PCR NEGATIVE (NEGATIVE); SARS-Cov-2 (COVID-19) PCR, MMC NEGATIVE (NEGATIVE)
[2024-02-07 23:25] LABS: Source, Urine Clean Catch
[2024-02-07] MEDS ORDERED: Acetaminophen 500 MG Tab PO ONE (23:25)
[2024-02-07 23:42] LABS: Appearance, Urine Hazy (Clear); Bilirubin, Urine Neg (Neg); Blood, Urine 5+ (Neg); Color, Urine Yellow (P-Yellow); Glucose Qualitative, Urine Neg (Neg); Ketones, Urine Neg (Neg); Leukocyte Esterase, Urine 3+ (Neg); Nitrite, Urine Neg (Neg); Protein, Urine 2+ (Neg); Specific Gravity, Urine 1.015 (1.003-1.022); Urobilinogen, Urine 3+ (Normal)
[2024-02-07 23:44] LABS: Bacteria Many /hpf; Hyaline Casts 0-2 /lpf (0-2); Red Blood Cells, Urine 0-2 /hpf (0-2); Squamous Epithelial Cells Few /hpf (Few); White Blood Cells, Urine 25-50 /hpf (0-5)
[2024-02-07] MEDS ORDERED: Ketorolac Tromethamine 15mg Vial IV ONE (23:45)
[2024-02-07 23:47] LABS: U Amphetamine Screen Not Detected; U Barbituate Screen Not Detected; U Benzodiazapine Screen Not Detected; U Buprenorphine Screen Not Detected; U Cannabinoids Screen DETECTED; U Cocaine Screen Not Detected; U Methadone Screen Not Detected; U Methamphetamine Screen Not Detected; U Opiates Screen Not Detected; U Oxycodone Screen Not Detected; U Phencyclidine Screen Not Detected
[2024-02-08] MEDS ORDERED: NS 1,000 ML IV SCH (01:19)
[2024-02-08] MEDS ORDERED: Acetaminophen 650 MG Supp PR PRN (01:20)
[2024-02-08] MEDS ORDERED: Bisacodyl 10 MG Supp PR PRN (01:20)
[2024-02-08] MEDS ORDERED: Magnesium Hydroxide Conc 10 ML UDC PO PRN (01:25)
[2024-02-08] MEDS ORDERED: FLU VACC TS2024-25(6MOS UP)/PF 45 MCG/0.5 ML SYRINGE IM SCH (01:25)
[2024-02-08] MEDS ORDERED: Acetaminophen 325 MG TABLET PO PRN (01:25)
--- NOTE | 2024-02-08 03:10 | NUR ---
PT ADMITTED TO FLOOR VIA GURNEY FROM ER. PT TRANSFERRED TO MEDICAL FLOOR BED WITH A SLIDER SHEET. PT COMPLAINS OF ALL OVER BODY ACHES. OTOOLE PLACED IN ER - TEA COLORED URINE OUT. PT HAS A HISTORY OF [facility] - REPORTS USED [facility] APPX 2 WEEKS AGO, AND REPORTS SHE VAPES MOST DAYS - PT OKAYED FOR STAFF TO LOOK THROUGH HER BELONGINGS - ALL IGNITION SOURCES LOCKED UP IN CUBBY OUTSIDE OF DOOR - REVIEWED WITH PT THAT THESE WERE LOCKED UP. REVIEWED CALL LIGHT PROCEDURE. BED ALARM ON FOR PT SAFETY. PT ASKING FOR FOOD AND WATER, AND WARM BLANKETS - ALL PROVIDED. WARM WASH CLOTHS PROVIDED FOR PT'S LEFT EYE WITH INSTRUCTIONS OF USE FOR CONJUNCTIVITIS. REVIWED WITH PT THAT SHE CAN HAVE TYLENOL IN APPX 1 HOUR.
[2024-02-08 03:19] VITALS: BP 94/63
[2024-02-08] MEDS ORDERED: IBUP800 PO (03:22)
[2024-02-08] MEDS ORDERED: GABA400 (03:23)
--- NOTE | 2024-02-08 04:26 | NUR ---
PT IS CURRENTLY SLEEPING. IV FLUIDS INFUSING WITHOUT COMPLICATIONS. BED ALARM ON. FLUIDS AT BEDSIDE.
--- NOTE | 2024-02-08 05:35 | NUR ---
SHIFT SUMMARY - PT ADMITTED AT 0310 TONIGHT - SEE PREVIOUS NOTE. NO ACUTE CHANGES SINCE ADMIT. PT IS CURRENTLY SLEEPING - RESPIRATIONS EVEN AND UNLABORED. PO FLUIDS WITHIN REACH. CALL LIGHT WITHIN REACH. BED IN LOW POSITION. BED ALARM OF FOR PT SAFETY. WILL CONTINUE TO MONITOR UNTIL AM SHIFT CHANGE.
[2024-02-08 05:38] LABS: BASOPHILS ABSOLUTE AUTO 0.17 K/mm3 (0.00-0.23); BASOPHILS PERCENT AUTO 1 % (0-2); EOSINOPHILS PERCENT AUTO 0 % (0-6); Hematocrit 33.7 % (33.0-51.0); Hemoglobin 11.7 g/dL (11.5-16.0); IMMATURE GRAN ABSOLUTE AUTO 0.46 K/mm3 (0.00-0.10); IMMATURE GRAN PERCENT AUTO 2 % (0-1); LYMPHOCYTES ABSOLUTE AUTO 1.44 K/mm3 (0.84-5.20); LYMPHOCYTES PERCENT AUTO 5 % (21-46); MONOCYTES ABSOLUTE AUTO 0.96 K/mm3 (0.16-1.47); MONOCYTES PERCENT AUTO 3 % (4-13); Mean Corpuscular HGB 30.7 pg (26.0-34.0); Mean Corpuscular HGB Conc 34.7 g/dL (31.5-36.5); Mean Corpuscular Volume 89 fL (80-100); Mean Platelet Volume 10.1 fL (9.1-12.4); NEUTROPHILS ABSOLUTE AUTO 25.96 K/mm3 (1.96-9.15); NEUTROPHILS PERCENT AUTO 89 % (41-73); Platelet Count 244 K/mm3 (150-400); RDW Coefficient Variation 14.1 % (11.7-14.2); RDW Standard Deviation 45.4 fL (35.1-46.3); Red Blood Cell Count 3.81 M/mm3 (3.80-5.20); White Blood Cell Count 29.09 K/mm3 (4.00-11.30)
[2024-02-08 06:19] LABS: Albumin, Blood 1.7 g/dL (3.4-5.0); Albumin/Globulin Ratio 0.3 (0.8-1.8); Bilirubin, Total 0.5 mg/dL (0.1-1.0); Bun/Creatinine Ratio 33.7 (12.0-20.0); Calcium, Blood 7.8 mg/dL (8.5-10.1); Creatinine, Blood 0.89 mg/dL (0.40-1.00); Globulin, Blood 4.9 g/dL (2.2-4.0); Total Protein, Blood 6.6 g/dL (6.4-8.2)
[2024-02-08] MEDS ORDERED: Ofloxacin 0.3% Opth Soln 5 ML LEFTEYE SCH (07:15)
[2024-02-08 08:12] VITALS: BP 134/90
[2024-02-08] MEDS ORDERED: Docusate Sodium 100 MG Cap PO SCH (09:00)
[2024-02-08] MEDS ORDERED: Enoxaparin 40 MG/0.4 ML SYR SC SCH (09:00)
[2024-02-08] MEDS ORDERED: Lactobacil 2-S.Thermo-Bifido 1 1 Cap PO SCH (09:00)
[2024-02-08] MEDS ORDERED: Sennosides 8.6 MG Tab PO SCH (09:00)
[2024-02-08] MEDS ORDERED: NS 1,000 ML IV ONE (11:10)
[2024-02-08 15:15] VITALS: BP 127/83
[2024-02-08] MEDS ORDERED: Propofol 10mg/ml 20 ml Vial (Procedural) IV ONE (15:28)
--- NOTE | 2024-02-08 18:35 | NUR ---
VSS, A-Ox3 disoreinted to time and lethergic at times, denies SOB, states 8 out of 10 pain that was well managed with prn tylenol, has not ambulated since admision, on RA. Lungs diminished, heart regular, bowel sounds normative, parker in place draining clear aracelis urine. Pt can make needs known, call quinonez in hand, bed in lowest position.
[2024-02-08 20:00] VITALS: BP 127/87
[2024-02-08] MEDS ORDERED: CefTRIAXone Sodium 1,000 MG in NS 100 ML IV SCH (21:00)
[2024-02-08] MEDS ORDERED: CefTRIAXone Sodium 2,000 MG in NS 100 ML IV SCH (21:00)
--- NOTE | 2024-02-09 03:38 | NUR ---
HEARSE DRIVER SUMMARY TEMP WAS ELEVATED AT SHIFT COMMENCE, BUT TRENDED DOWN TO WNL, OTHERWISE VSS. LERTHARGIC. VERBAL RESPONSE CONFUSED AND EASILY TEARY EYED. FOCUS DURING INTERACTIONS INCLUDED VERBAL SUPPORT AND REDIRECTIONS. EYE GTTS ORDERED Q HR WHILE AWAKE SHE HAS APPARENT EYE CONJUNCTIVITIS - SEE MAR FOR DETAILS. Patronpath . OTOOLE TO DOWN DRAIN. HAS BEEN RESTING QUIETLY MOST OF SHIFT. CALL LIGHT IN REACH, RAILS UP X 2 AND BED IN LOW POSITION FOR SAFETY. WILL CONT TO MONITOR.
[2024-02-09 04:43] VITALS: BP 132/86
[2024-02-09 04:54] LABS: BASOPHILS ABSOLUTE AUTO 0.05 K/mm3 (0.00-0.23); BASOPHILS PERCENT AUTO 0 % (0-2); EOSINOPHILS PERCENT AUTO 0 % (0-6); Hematocrit 30.7 % (33.0-51.0); Hemoglobin 10.7 g/dL (11.5-16.0); IMMATURE GRAN ABSOLUTE AUTO 0.27 K/mm3 (0.00-0.10); IMMATURE GRAN PERCENT AUTO 1 % (0-1); LYMPHOCYTES ABSOLUTE AUTO 1.59 K/mm3 (0.84-5.20); LYMPHOCYTES PERCENT AUTO 8 % (21-46); MONOCYTES ABSOLUTE AUTO 1.21 K/mm3 (0.16-1.47); MONOCYTES PERCENT AUTO 6 % (4-13); Mean Corpuscular HGB 30.7 pg (26.0-34.0); Mean Corpuscular HGB Conc 34.9 g/dL (31.5-36.5); Mean Corpuscular Volume 88 fL (80-100); Mean Platelet Volume 9.5 fL (9.1-12.4); NEUTROPHILS ABSOLUTE AUTO 17.19 K/mm3 (1.96-9.15); NEUTROPHILS PERCENT AUTO 85 % (41-73); Platelet Count 216 K/mm3 (150-400); RDW Standard Deviation 45.1 fL (35.1-46.3); Red Blood Cell Count 3.48 M/mm3 (3.80-5.20); White Blood Cell Count 20.31 K/mm3 (4.00-11.30)
[2024-02-09 05:34] LABS: Bun/Creatinine Ratio 34.6 (12.0-20.0); Calcium, Blood 7.3 mg/dL (8.5-10.1); Creatinine, Blood 0.67 mg/dL (0.40-1.00); Magnesium, Blood 2.3 mg/dL (1.6-2.4)
[2024-02-09 08:10] VITALS: BP 113/78
[2024-02-09 16:10] VITALS: BP 113/73
--- NOTE | 2024-02-09 17:27 | NUR ---
PATIENT ROLLED OVER TO BACK FOR EYEDROP ADMINISTRATION. C/O 10/10 PAIN IN LEFT SHOULDER. TOO SOON FOR APAP. WILL CONTACT PROVIDER TO REQUEST ADDITIONAL PAIN CONTROL.
[2024-02-09] MEDS ORDERED: TraMADol HCl 50 MG Tab PO PRN (17:35)
--- NOTE | 2024-02-09 18:21 | NUR ---
PATIENT A&OX2-3, EASILY CONFUSED. ABLE TO STATE NAME, , AND LOCATION, UNABLE TO STATE YEAR OR HOSPITAL. SLEEPING MOST OF DAY, RESPONDS TO VERBAL STIMULI. SLEEPING THROUGH MEALS/REFUSING. PATIENT HAS A OTOOLE CATHETER, PATENT AND DRAINING, STAT-LOCK TO RIGHT LEG. C/O 9/10 PAIN, GAVE PRN TYLENOL AND NEW ORDER FOR TRAMADOL. BED IS IN LOW POSITION, PATIENT ENCOURAGED TO USE CALL LIGHT, CALL LIGHT WITHIN REACH.
[2024-02-09 20:27] VITALS: BP 109/77
[2024-02-10 02:54] VITALS: BP 118/82
--- NOTE | 2024-02-10 04:18 | NUR ---
MANAGER MANUFACTURING SUMMARY VSS. CONTINUES TO RECEIVE IV ANTIBIOTICS FOR SEPSIS AND EYE GTTS FOR LEFT EYE CONJUNCTIVITIS - SEE MAR FOR DETAILS. MORE VERBAL AND INTERACTIVE WITH STAFF THAN NOTED 24 HR AGO. STILL DISPLAYING INTERMITTENT MOODINESS AND CRYING WHEN DOING SO. VOICED PAIN IN BACK WHEN REPOSITIONED. PAIN MEDS EFFECTIVE. HAS BEEN RESTING QUIETLY WITH FEW INTERRUPTIONS OTHERWISE. ABLE TO REPOSITION SELF IN BED WITHOUT ASSIST. CALL LIGHT IN REACH, RAILS UP X 2 AND BED IN LOW POSITION FOR SAFETY. WILL CONTINUE TO MONITOR
[2024-02-10 04:48] LABS: BASOPHILS ABSOLUTE AUTO 0.04 K/mm3 (0.00-0.23); BASOPHILS PERCENT AUTO 0 % (0-2); EOSINOPHILS ABSOLUTE AUTO 0.01 K/mm3 (0.00-0.68); EOSINOPHILS PERCENT AUTO 0 % (0-6); Hematocrit 32.3 % (33.0-51.0); Hemoglobin 11.1 g/dL (11.5-16.0); IMMATURE GRAN ABSOLUTE AUTO 0.23 K/mm3 (0.00-0.10); IMMATURE GRAN PERCENT AUTO 1 % (0-1); LYMPHOCYTES ABSOLUTE AUTO 1.61 K/mm3 (0.84-5.20); LYMPHOCYTES PERCENT AUTO 9 % (21-46); MONOCYTES ABSOLUTE AUTO 1.06 K/mm3 (0.16-1.47); MONOCYTES PERCENT AUTO 6 % (4-13); Mean Corpuscular HGB 30.8 pg (26.0-34.0); Mean Corpuscular HGB Conc 34.4 g/dL (31.5-36.5); Mean Corpuscular Volume 90 fL (80-100); Mean Platelet Volume 9.9 fL (9.1-12.4); NEUTROPHILS PERCENT AUTO 83 % (41-73); Platelet Count 229 K/mm3 (150-400); RDW Standard Deviation 46.4 fL (35.1-46.3); White Blood Cell Count 17.05 K/mm3 (4.00-11.30)
[2024-02-10 05:24] LABS: Albumin, Blood 1.6 g/dL (3.4-5.0); Albumin/Globulin Ratio 0.3 (0.8-1.8); Bilirubin, Total 0.4 mg/dL (0.1-1.0); Bun/Creatinine Ratio 34.9 (12.0-20.0); Calcium, Blood 7.9 mg/dL (8.5-10.1); Creatinine, Blood 0.6 mg/dL (0.40-1.00); Globulin, Blood 4.7 g/dL (2.2-4.0); Potassium, Blood 3.8 mmol/L (3.5-5.5); Total Protein, Blood 6.3 g/dL (6.4-8.2)
[2024-02-10] MEDS ORDERED: Polyethylene Glycol 3350 17 gm PO PRN (08:00)
[2024-02-10 08:28] VITALS: BP 126/90
[2024-02-10] MEDS ORDERED: Multivitamins 1 Tab PO SCH (09:00)
--- NOTE | 2024-02-10 09:00 | NUR ---
Pt laying in bed with eyes closed, resp even and unlabored, lungs are clear dim in bases, on r/a, mood is volital, tele in place running sr in the 70's, no edema noted, ppp+2, cap refill<3 sec, vs stable, afebrile, piv to rh site is clear and patent, btx4, abd flat soft nontender, voids via parker cath due to retention, skin has scattered bruising otherwise ok, left eye is very red, applying gtts as ordered, call light in reach.
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
[2024-02-10 15:36] VITALS: BP 119/80
[2024-02-10 17:14] LABS: HIV 1,2 COMBO ANTIGEN/ANTIBODY Negative (Negative)
--- NOTE | 2024-02-10 19:13 | NUR ---
pt has slept most of the day, at times she will get herself tangled in covers with legs over bed, a bit disoriented, found iv laying in the bed, takes po meds without diff, seems a bit painful when being moved, no acute changes this shift. call light in reach.
[2024-02-10 19:31] VITALS: BP 110/72
[2024-02-10] MEDS ORDERED: Docusate Sodium/Senna 1 Tab PO SCH (21:00)
[2024-02-11 04:24] VITALS: BP 125/81
--- NOTE | 2024-02-11 06:45 | NUR ---
Shift Summary No acute changes. Garcia in place, pt was able to sleep well t/o most of the night. Medicated for shoulder and generalized pain. Gave eyedrops Q1h while awake.
[2024-02-11 07:31] VITALS: BP 121/76
[2024-02-11] MEDS ORDERED: Ofloxacin 0.3% Opth Soln 5 ML LEFTEYE SCH (14:00)
[2024-02-11] MEDS ORDERED: Tobramycin/Dexameth Opth Susp 2.5 ML LEFTEYE SCH (14:00)
[2024-02-11] MEDS ORDERED: Cyclopentolate HCl 1% Opth Soln 2ML BTL LEFTEYE SCH (14:00)
[2024-02-11 15:35] VITALS: BP 127/80
--- NOTE | 2024-02-11 19:21 | NUR ---
SHIFT SUMMARY: PT IS A/O X3. ONE ASSIST TO BATHROOM. PT HAD OTOOLE CATHETER REMOVED AT 1630. TOLERATED WELL. NO URINE OUTPUT AT THIS TIME. PT WAS PAINFUL TODAY C/O NECK AND L ARM PAIN AND GENERALIZED ACHES AND PAINS. MANAGED WITH TRAMADOL AND TYLENOL. PT DID HAVE SOME YELLOW WHITE DISCHARGE FROM VAGINAL AREA. DENIES ITCHING, PAIN AND NO REDNESS OR SWELLING NOTED. SPOKE TO DR. YANNI MCKEON TODAY AND REPORTED TO HER NO IMPROVEMENT TO L EYE. PT IS NOW ON 2 MORE EYE MEDICATIONS. PT TOLERATING PO INTAKE OF FLUIDS BUT IS NOT EATING WELL. STAFF REPORTED AT END OF SHIFT SHE MAY BE HALLUCINATING DUE TO PT REPORTING "I SEE JAMIL EVERYWHERE." REPORTED TO ONCOMING RN REPORTS OF POSSIBLE HALLUCINATIONS WHICH IS POSSIBLY A NEW SYMPTOM.
[2024-02-11 19:34] VITALS: BP 110/72
[2024-02-11] MEDS ORDERED: NS 250 ML IV PRN (22:00)
[2024-02-12 04:37] VITALS: BP 126/81
[2024-02-12 05:25] LABS: Hematocrit 33.5 % (33.0-51.0); Hemoglobin 11.4 g/dL (11.5-16.0); Mean Corpuscular HGB 31.2 pg (26.0-34.0); Mean Corpuscular Volume 92 fL (80-100); Mean Platelet Volume 10.7 fL (9.1-12.4); Platelet Count 274 K/mm3 (150-400); RDW Coefficient Variation 14.2 % (11.7-14.2); RDW Standard Deviation 47.9 fL (35.1-46.3); Red Blood Cell Count 3.65 M/mm3 (3.80-5.20); White Blood Cell Count 14.23 K/mm3 (4.00-11.30)
[2024-02-12 05:55] LABS: Albumin, Blood 1.4 g/dL (3.4-5.0); Anion Gap 11 mmol/L (3-11); Blood Urea Nitrogen 13 mg/dL (8-24); Bun/Creatinine Ratio 23.2 (12.0-20.0); CO2, Blood 27 mmol/L (21-32); Calcium, Blood 7.6 mg/dL (8.5-10.1); Chloride, Blood 99 mmol/L (98-108); Creatinine, Blood 0.56 mg/dL (0.40-1.00); Glomerular Filtration Rate 108 (60-); Glucose, Blood 91 mg/dL (70-99); Magnesium, Blood 2.3 mg/dL (1.6-2.4); Phosphorus, Blood 3.5 mg/dL (2.5-4.9); Potassium, Blood 4.7 mmol/L (3.5-5.5); Sodium, Blood 132 mmol/L (136-145)
--- NOTE | 2024-02-12 06:44 | NUR ---
Shift Summary Pt rcving antibiotic eyedrops as ordered. She had her parker removed yesterday and has been urinating without issue. A purewick is in place because she is too weak to ambulate or pivot at this time. Pt has good liquid PO intake, she had multiple juices, linton and an ensure. She is AOx4 and slept well t/o most of the night. Medicated once for generalized pain.
[2024-02-12 07:23] VITALS: BP 107/67
[2024-02-12] MEDS ORDERED: TraMADol HCl 50 MG Tab PO PRN (09:25)
[2024-02-12 15:34] VITALS: BP 105/59
--- NOTE | 2024-02-12 18:16 | NUR ---
SHIFT SUMMARY PT A&0x4. PT ADMITTED DUE TO SEPSIS. PT REPORTED GENERALIZED PAIN. PAIN BEING MANAGED WITH TYLENOL AND TRAMADOL PER EMAR. PERWICK THROUGH DAY DUE TO PAIN AND NOT WANTING TO GET OUT OF BED. PRODUCING ADEQUATE AMOUNT OF URINE. EYE IS IMPROVING, PT ABLE TO OPEN HER EYES MORE. PT REPORTS SEEING BUBBLES TODAY. EYE IS MANAGED WITH EYEDROPS AND WARM WASHCLOTH. PT REFUSES MEALS BUT PT WILL DRINK ENSURES FOR REPLENISHMENT. VSS. PT ON ROOM AIR. PT REFUSED PHYSICAL THERAPY. PT VERBALIZES NEEDS. CALL LIGHT IN REACH.
[2024-02-12 19:07] VITALS: BP 117/86
[2024-02-13 03:09] VITALS: BP 117/80
--- NOTE | 2024-02-13 05:49 | NUR ---
SHIFT SUMMARY NOC PT A/O X 4. PLEASANT AND CCOPERATIVE WITH CARE. VSS. NO ACUTE CHANGES TO REPORT. PT RECEIVING EYE DROPS Q2H PER EMAR. GENERALIZED PAIN BEING MANAGED PER EMAR. PT LEFT EYE CRUSTY BUT NO DISCHARGE NOTED. ON TELE SINUS RHYTHM IN 80'S. PUREWICK IN PLACE DUE TO DECONDITIONING AND PAIN. PT CURRENTLY RESTING WITH BED IN LOWEST POSITION, AND CALL LIGHT WITHIN REACH.
[2024-02-13 07:50] VITALS: BP 123/81
[2024-02-13 15:14] VITALS: BP 104/69
[2024-02-13] MEDS ORDERED: Lidocaine 2% Viscous Soln 20 ML,Nystatin 100,000 Unit/ml Susp 20 ML,Mag Hydrox/Al Hydro... MT SCH (16:00)
--- NOTE | 2024-02-13 17:00 | NUR ---
SHIFT NOTE: PT HAS BEEN RESTING ALL DAY. SHE REPORTS LETHARGY AND REQUESTS TO SLEEP. SHE IS ORIENTED TO SELF AND PLACE ONLY. SHE REPORTS SHE IS UNABLE TO SEE OUT HER LEFT EYE AND ONLY SEES PATTERNS IN HER RIGHT EYE LIKE SHE IS HALLUCINATING. SHE IS ON TELE IN SINUS WITH NO ACUTE EVENTS THIS SHIFT. SHE DENIES CHEST PAIN/PRESSURE. SHE IS ON RA WITH SPO2>90% DENIES SOB. SHE HAS A PUREWICK IN PLACE VOIDING DARK URINE. HER PO INTAKE HAS BEEN VERY LOW DUE TO DROWSINESS. MAGIC MOUTHWASH WAS ORDERED FOR THE SORES ON HER TONGUE. WILL CONTINUE TO MONITOR AND REPORT TO ONCOMING RN. CALL LIGHT IN REACH.
[2024-02-13 19:39] VITALS: BP 117/76
[2024-02-14 02:32] VITALS: BP 113/75
--- NOTE | 2024-02-14 05:33 | NUR ---
SHIFT SUMMARY NOC PT A/O X 3-4. LETHARGIC AND SLEPT ENTIRETY OF SHIFT AFTER ASSESSMENT. VSS. EYEDROPS GIVEN PER EMAR WHEN PT AWAKE, PT DOES NOT LIKE MEDICATED MOUTH WASH. GENERALIZED PAIN BEING TREATED PER EMAR. ON TELE SINUS RHYTHM IN 90'S. PUREWICK IN PLACE DUE TO PAIN AND DECONDITIONING. PT DISCHARGE [facility] AND IF UNABLE TO GO BACK THERE, WOULD BE GOING TO [facility]. PT CURRENTLY RESTING WITH BED IN LOWEST POSITION, AND CALL LIGHT WITHIN REACH.
[2024-02-14 07:31] VITALS: BP 116/81
[2024-02-14] MEDS ORDERED: TraMADol HCl 50 MG Tab PO PRN (10:25)
--- NOTE | 2024-02-14 11:28 | NUR ---
CALLED DR. MCKEON'S OFFICE AND LEFT A MESSAGE REGUARDING PATIENT. WANTING TO KNOW IF SHE WAS WANTING TO RE-EVALUATE THE PATIENT BEFORE THE WEEKEND AND TO LET HER KNOW THAT THE PATIENT REPORTS IMPROVEMENT IN SENSATION OF THE EYE; LESS PAINFUL, BUT VISION IS THE SAME.
[2024-02-14] MEDS ORDERED: LamoTRIgine 25 MG Tab PO SCH (14:00)
--- NOTE | 2024-02-14 14:03 | NUR ---
DR. MCKEON CALLED BACK AT 1330. SHE STATES THAT THERE IS NO NEED FOR HER TO RECONSULT THE PATIENT AND THAT IT SOUNDS IF THE PATIENT IS IMPROVING. DR. MCKEON STATES THAT THERE ISN'T MUCH SHE CAN DO EVALUATION/ACESSMENT VINCENT AT BEDSIDE AND THAT SHE WOULD NEED TO FOLLOW UP WITH PATIENT OUTPATIENT. IF ANYTHING HAPPENS OVER THE WEEKEND TO CALL THE ONCALL.
[2024-02-14 17:12] VITALS: BP 111/80
--- NOTE | 2024-02-14 18:29 | NUR ---
SHIFT SUMMARY: PT IS A&OXSELF, YEAR, AND PERSON AT TIMES. SHE KEEPS HER EYES CLOSED MAJORITY OF THE TIME. SHE WILL OPEN THEM FOR SHORT PERIODS OF TIME. SHE EXPRESSES THIS EVENING THAT HER EYES FEEL BETTER AND THAT HER VISION IS WELL. SHE STATES THAT SHE WAS ABLE TO SEE ME AND WAS ABLE TO IDENTIFY SOME OF MY FEATURES. WHEN I ASKED HER TO READ SOMETHING SHE BECAME UPSET, TURNED AWAY, AND SAID "I CAN'T." PATIENT OVERALL COOPERATIVE AND PLEASANT WITH CARE, WITH FEW EMOTIONAL OUTBURST. SHE WORKED WITH PHYSICAL THERAPY TODAY AND WAS MOTIVATED TO STAND UP; TOLERATED FOR 30 SECONDS-1 MIN AND THEN NEEDED TO LAY DOWN. PATIENT ENCOURAGED TO SIT ON THE EDGE OF BED FOR MEALS. PATIENT HAS BEEN NEEDING ASSISTANCE WITH MEALS. PATIENT IN BED, CALL LIGHT WITHIN REACH, BED ALARM SET, NO SIGNS OR SYMPTOMS OF DISTRESS, PLAN OF CARE ONGOING.
[2024-02-14 19:20] VITALS: BP 117/75
[2024-02-14] MEDS ORDERED: QUEtiapine Fumarate 300 MG Tab PO SCH (21:00)
[2024-02-15 04:17] VITALS: BP 127/88
[2024-02-15 05:29] LABS: Hematocrit 29.4 % (33.0-51.0); Hemoglobin 9.6 g/dL (11.5-16.0); Mean Corpuscular HGB 30.7 pg (26.0-34.0); Mean Corpuscular HGB Conc 32.7 g/dL (31.5-36.5); Mean Corpuscular Volume 94 fL (80-100); Mean Platelet Volume 9.3 fL (9.1-12.4); Platelet Count 521 K/mm3 (150-400); RDW Coefficient Variation 14.2 % (11.7-14.2); RDW Standard Deviation 47.8 fL (35.1-46.3); Red Blood Cell Count 3.13 M/mm3 (3.80-5.20); White Blood Cell Count 15.75 K/mm3 (4.00-11.30)
[2024-02-15 06:05] LABS: Albumin, Blood 1.8 g/dL (3.4-5.0); Anion Gap 14 mmol/L (3-11); Blood Urea Nitrogen 15 mg/dL (8-24); Bun/Creatinine Ratio 25.4 (12.0-20.0); CO2, Blood 26 mmol/L (21-32); Calcium, Blood 8.6 mg/dL (8.5-10.1); Chloride, Blood 100 mmol/L (98-108); Creatinine, Blood 0.59 mg/dL (0.40-1.00); Glomerular Filtration Rate 107 (60-); Glucose, Blood 100 mg/dL (70-99); Magnesium, Blood 1.9 mg/dL (1.6-2.4); Phosphorus, Blood 4.1 mg/dL (2.5-4.9); Potassium, Blood 4.6 mmol/L (3.5-5.5); Sodium, Blood 135 mmol/L (136-145)
[2024-02-15 07:11] VITALS: BP 128/81
[2024-02-15 15:20] VITALS: BP 109/65
--- NOTE | 2024-02-15 16:53 | NUR ---
SHIFT SUMMARY: NO EVENTS OR CHANGES WITH THE PATIENT THROUGHOUT THE SHIFT. SHE HAS REMAINED IN BED AND HAS BEEN DIFFICULT TO DIRECT TODAY AND COOPERATE WITH CARE. SHE HAS BEEN RESISTANT AND HAVING MORE BEHAVIORAL OUTBURST TODAY; CRYING, YELLING, CUSSING, THRASHING ARMS AND HEAD. PATIENT FRUSTRATES/GETS ANNOYED EASILY. SHE CONTINUES TO KEEP HER EYES CLOSED MOST OF THE TIME. LEFT EYE CONTINUES TO BE CLOUDY; MORE CRUSTY TODAY. PATIENT GRABBED THE PEER FINANCIAL COUNSELOR'S ARM TODAY AND SAID " JUST WANTING TO MAKE SURE THERE ISN'T TWO OF YOU." PATIENT APPEARS IN PAIN AND C/O PAIN MOST OF THE SHIFT WHEN SHE IS AWAKE. SHE IS CURRENTLY SLEEPING, RESPIRATIONS EVEN AND UNLABORED, AND SLIGHT SNORING. SHE REMAINS INCONTIENT. NO BM. SHE DOESN'T USE HER CALL LIGHT OR TRY TO GET OUT OF BED. HER ORAL INTAKE IS POOR AND IS ENCOURANGED TO EAT AND ASSISTED WITH EATING AND DRINKING FROM STAFF. PLAN OF CARE ONGOING.
[2024-02-15 19:43] VITALS: BP 107/75
[2024-02-16 04:44] VITALS: BP 114/70
[2024-02-16 05:38] LABS: BASOPHILS ABSOLUTE AUTO 0.05 K/mm3 (0.00-0.23); BASOPHILS PERCENT AUTO 0 % (0-2); EOSINOPHILS ABSOLUTE AUTO 0.03 K/mm3 (0.00-0.68); EOSINOPHILS PERCENT AUTO 0 % (0-6); Hematocrit 26.8 % (33.0-51.0); Hemoglobin 8.8 g/dL (11.5-16.0); IMMATURE GRAN ABSOLUTE AUTO 0.18 K/mm3 (0.00-0.10); IMMATURE GRAN PERCENT AUTO 2 % (0-1); LYMPHOCYTES ABSOLUTE AUTO 2.41 K/mm3 (0.84-5.20); LYMPHOCYTES PERCENT AUTO 22 % (21-46); MONOCYTES ABSOLUTE AUTO 0.88 K/mm3 (0.16-1.47); MONOCYTES PERCENT AUTO 8 % (4-13); Mean Corpuscular HGB 30.6 pg (26.0-34.0); Mean Corpuscular HGB Conc 32.8 g/dL (31.5-36.5); Mean Corpuscular Volume 93 fL (80-100); Mean Platelet Volume 8.5 fL (9.1-12.4); NEUTROPHILS ABSOLUTE AUTO 7.68 K/mm3 (1.96-9.15); NEUTROPHILS PERCENT AUTO 68 % (41-73); Platelet Count 554 K/mm3 (150-400); RDW Coefficient Variation 14.1 % (11.7-14.2); RDW Standard Deviation 47.8 fL (35.1-46.3); Red Blood Cell Count 2.88 M/mm3 (3.80-5.20); White Blood Cell Count 11.23 K/mm3 (4.00-11.30)
[2024-02-16 06:24] LABS: Bun/Creatinine Ratio 26.5 (12.0-20.0); Creatinine, Blood 0.57 mg/dL (0.40-1.00); Potassium, Blood 4.5 mmol/L (3.5-5.5)
--- NOTE | 2024-02-16 06:36 | NUR ---
SHIFT SUMMARY: Pt is admitted for sepsis and is a full code. Is alert and able to make needs known. ADLs have been a mix of 1-2p depending on how much she wanted to assist. Denies pain or discomfort when asked.
[2024-02-16 08:38] VITALS: BP 131/80
[2024-02-16 17:14] VITALS: BP 115/77
--- NOTE | 2024-02-16 19:08 | NUR ---
report received verified, pt is a/o with stable vital signs, laying quietly with eyes closed, due to pain whenever eyes are opened, q2 hour eye drops ordered. pt did not want breakfast and requested only fluids, water at bedside set up so pt can reach. i offer pt food and drink everytime i walk in the room and pt accepts, but is unable to feed self and she explained because of her hx of ulcerative colitis she eats very little as it is. pt was very upset when aid told pt to wake up for lunch, pt was awake just had eyes closed. i fed pt minimal amount of food. seems like pt can not make needs known so call light has been placed within reach and increase in hourly checks implemented, pt is inc and states she doesnt know when goes or has even gone. pt needed to be changed several times through shift.
[2024-02-16 19:59] VITALS: BP 122/77
[2024-02-17 05:32] VITALS: BP 118/80
[2024-02-17 05:59] LABS: Percent Saturation 12.5 % (15.0-50.0)
--- NOTE | 2024-02-17 06:27 | NUR ---
SHIFT SUMMARY: Pt is admitted for sepsis and is a full code. Is alert and able to make needs known. ADLs have been a mix of 1-2p depending on how much she wanted to assist. Denies pain or discomfort when asked. Stated that she was a little short of breath at one point. SPO2 was 90-92 on RA but would drop down to 88 for about a sec then recover back to 90-92. This drop happened twice in the same fashion in about a 3 minute time frame. Lungs were clear but dim at the bases.
[2024-02-17 07:20] VITALS: BP 113/71
[2024-02-17] MEDS ORDERED: Amoxicillin/Clavulanate K 875 MG Tab PO SCH (09:00)
[2024-02-17 16:18] VITALS: BP 101/70
--- NOTE | 2024-02-17 19:35 | NUR ---
report received verified. pt laying quietly in bed c/o a lot of pain to eyes and left shoulder, pt was medicated. once pt calm i enc her to use bedside commode since she is incontinent and her skin has potiential for breaking down. Dr Henderson into see pt and i reported pt condition with eye, reconsultation was ordered and called into Dr Jackson opthalmologist. pt was assisted with all meals but would only eat small portions. pt at this point cannot feed self unless she has finger foods put directly in hand, swallow is intact as well as coordination. 0 dr jackson into see pt new orders were given as well as a protective contact yahir was placed in left eye. culture of left eye was also done. pt is calm and more talkative this evening. pt claiming she is hungry now so snacks were given.
[2024-02-17] MEDS ORDERED: CefTRIAXone Sodium 2,000 MG in NS 100 ML IV SCH (21:00)
[2024-02-17] MEDS ORDERED: Timolol 0.5% Opth Soln 5 ML LEFTEYE SCH (21:00)
[2024-02-17] MEDS ORDERED: Atropine Sulfate 1% Opth Soln 2ML BTL LEFTEYE SCH (21:00)
[2024-02-17] MEDS ORDERED: Ofloxacin 0.3% Opth Soln 5 ML BOTHEYES SCH (21:00)
[2024-02-17] MEDS ORDERED: Tobramycin 0.3% Opth Soln 5 ML BOTHEYES SCH (21:00)
[2024-02-17 21:02] VITALS: BP 121/78
[2024-02-18 04:40] VITALS: BP 118/69
--- NOTE | 2024-02-18 05:18 | NUR ---
SUMMARY: PT A/OX4 AND ABLE TO MAKE NEEDS KNOWN BUT OFTEN NEGLECTS CALL LIGHT AND YELLS INTO HALLS FOR ASSIST INSTEAD. SHE'S BEEN PLESANT AND COOPERATIVE THIS SHIFT BUT MOOD CAN BE LABILE AT TIMES. PT UP W/SBA TO BSC AND HAD ATTENDS CHANGED PRN FOR OCC.INCONTINENCE. VARIOUS MEDICATED EYE GTTS RECEIVED PER EMAOscar AND REEVALUATION. L.EYE REMAINS CLOUDY AND RED TINGED W/PROTECTIVE LENS IN PLACE AND SHE CONT'S TO REPORT BILATERAL VISUAL DISTURBANCES. IV ABX RECIEVED AND SHE WAS ASSISTED W/PO INTAKE PER NEED FOR FEEDER. NEW IV PLACED TO R.FA W/US D/T DIFFICULT IV START AND NS INFUSES AT 20 ML/HR TKVO. NO ACUTE CHANGES, VSS/AFEBRILE. WCTM AND REPORT TO DAY RN.
[2024-02-18 06:44] LABS: Bun/Creatinine Ratio 21.9 (12.0-20.0); Calcium, Blood 8.8 mg/dL (8.5-10.1); Creatinine, Blood 0.69 mg/dL (0.40-1.00); Potassium, Blood 4.1 mmol/L (3.5-5.5)
[2024-02-18 07:24] VITALS: BP 110/71
[2024-02-18 15:58] VITALS: BP 97/79
[2024-02-18] MEDS ORDERED: CEFTAZIDIME 1000 MG XX SCH (17:00)
[2024-02-18] MEDS ORDERED: Lidocaine HCL 1% 10 ML MDV XX ONE (17:10)
--- NOTE | 2024-02-18 18:27 | NUR ---
SHIFT SUMMARY: PT IS A/O X 3, ONE ASSIST WITH PIVOT TX TO CHAIR. PT UNABLE TO SEE OUT OF LEFT EYE. SHE DOES REPORT SOME VISION TO R EYE BUT IS LIMITED WITH VIEWING AREA. PT CONTINUES TO REPORT PAIN TO L SHOULDER AND BACK, MANAGED WITH TRAMADOL AT THIS TIME. PT NEEDS ASSISTANCE WITH EATING DUE TO INABILITY TO SEE FOOD. DR. COTA EVALUATED PT THIS MORNING. RECOMMENDED TX TO [facility]. PT HAS ACCEPTING DOCTOR BUT NO BED YET. DR. COTA DID ABX INJECTIONS TO BILAT EYES AT BEDSIDE. PT TOLERATED WELL. ABX AND ATROPINE TO BOTH EYES TO CONTINUE.
--- NOTE | 2024-02-18 19:13 | NUR ---
NOTE GAVE REPORT TO [facility] TRANSFER NURSE
[2024-02-18 20:48] VITALS: BP 105/72
[2024-02-18] MEDS ORDERED: Atropine Sulfate 1% Opth Soln 2ML BTL BOTHEYES SCH (21:00)
[2024-02-19] VITALS (22 sets, daily range): BP systolic 91–111; BP diastolic 57–76
--- NOTE | 2024-02-19 04:38 | NUR ---
SHIFT SUMMARY PATIENT WAS RESTLESS, CONFUSED AND IMPULSIVE. HAD TO APPLY A BERTRAND JACKET RESTRAINT AT 0400. PATIENT FELL ASLEEP SOON WE PUT IT ON HER. TALKED WITH [facility] REGARDING BED TYPE FOR PATIENT. AND THEY SAID THEY WILL BE TAKING HER.
[2024-02-19] MEDS ORDERED: Benzocaine Oral Spray 0.5ML UD ONE (12:08)
[2024-02-19] MEDS ORDERED: NS 1,000 ML IV ONE (13:44)
[2024-02-19] MEDS ORDERED: Vancomycin HCL 1,250 MG in NS 250 ML IV SCH (18:00)
--- NOTE | 2024-02-19 18:45 | NUR ---
SHIFT SUMMARY PATIENT EASILY AGITATED WHEN STAFF ATTEMPT TO DO THINGS WITHOUT INFORMING HER. PATIENT INCONSISTANT ABOUT SAYING IF SHE CAN SEE OR NOT. PATIENT VERBALIZING PAIN IN JOINTS ALONG WITH EYES. PATIENT UP TO COMMODE TO VOID MULTIPLE TIMES. PATIENT NEEDING ASSISTANCE WITH WALKING BECAUSE OF VISUAL DEFICITS AND JOINT PAIN. OPTHAMOLOGY EVALUATED PATIENT AGAIN TODAY. EYES NOT APPEARING TO RESPOND TO CURRENT TREATMENT AND CONTINUE TO WANT PATIENT TRANSFERRED. PATIENT HAD ARI DONE TODAY. CONCERNS ABOUT BACTEREMIA AND POSSIBLE VEGITATION ON VALVE. REPORT CALLED TO JAYCEE AT [facility]. PATIENT TO TRANSFER WHEN AMBULANCE AVAILABLE TO TRANSFER. VANCO DOSE INITIATED BEFORE TRANSFER. AWAITING AMBULANCE.
--- NOTE | 2024-02-19 23:24 | NUR ---
DISCHARGE NOTE: AMBULANCE ARRIVED AT 2315 TO SOFTWARE PRODUCT MANAGER THE PT TO TAKE HER TO [facility]. PT ALERT ORIENTED X 3 WITH INTERMITTENT CONFUSION. PT AWARE OF THE TRANSFER AND IS OK WITH TRANSFER. ALL PATIENTS BELONGINGS WERE SENT WITH THE PT.
[2024-02-20] MEDS ORDERED: Vancomycin HCL 1,000 MG in NS 250 ML IV SCH (06:00)
== END 2024-02-19 23:19 | disposition short-term general hospital (02) | DRG 853 ==
LOC: ER 20:30 → MEDS 02-08 01:19
PROVIDERS: Family Medicine; Internal Medicine; Student in an Organized Health Care Education/Training Program; ADMIT Internal Medicine
PROC: 3E03329 Introduction of Other Anti-infective into Peripheral Vein, Percutaneous Approach (ICD-10-PCS; principal; 2024-02-08)
PROC: 08943ZZ Drainage of Right Vitreous, Percutaneous Approach (ICD-10-PCS; 2024-02-18)
DX: A40.9 Streptococcal sepsis, unspecified (principal); G92.8 Other toxic encephalopathy; I33.0 Acute and subacute infective endocarditis; N39.0 Urinary tract infection, site not specified; E87.1 Hypo-osmolality and hyponatremia; Z59.00 Homelessness unspecified; H44.003 Unspecified purulent endophthalmitis, bilateral; F10.10 Alcohol abuse, uncomplicated; F15.10 Other stimulant abuse, uncomplicated; F31.9 Bipolar disorder, unspecified; F17.210 Nicotine dependence, cigarettes, uncomplicated; R65.20 Severe sepsis without septic shock; H16.002 Unspecified corneal ulcer, left eye; A41.51 Sepsis due to Escherichia coli [E. coli]; E86.0 Dehydration; H16.202 Unspecified keratoconjunctivitis, left eye; H35.61 Retinal hemorrhage, right eye; I34.0 Nonrheumatic mitral (valve) insufficiency; Z79.899 Other long term (current) drug therapy
CPT/HCPCS: 0241U; 36415; 51702; 70450; 71045; 73020; 80048; 80053; 80069; 81001; 82140; 82607; 82728; 82746; 82947; 83540; 83550; 83605; 83735; 84100; 84439; 84443; 85025; 85027; 87040; 87070; 87077; 87086; 87184; 87186; 87205; 87389; 93005; 93010; 93306; 93308; 93312; 93321; 93325; 96361-59; 96365-59; 96375-59; 97110; 97162; 97530; 99285-25; A9270; J0696; J0713; J1650; J1885; J2001; J2704; J3370; J7030; J7050; J7120